=== PATIENT | female | born 1985 | race Two or more races ===

== ENCOUNTER 2018-11-15 10:07 | Outpatient (CLI) | payer OTHER | END 2018-11-15 10:10 | disposition home or self-care (01) | LOC: SONOGRAMA 10:07 → MAMO-SONO 11:15 | DX: N94.89 Other specified conditions associated with female genital organs and menstrual cycle (principal) ==

== ENCOUNTER → 2019-02-02 | Emergency (ER) | payer OTHER ==
[~2019-02-02] VITALS: Ht 149.9 cm; Wt 52.6 kg
== END | disposition home or self-care (01) ==
LOC: ER 09:29
DX: R10.13 Epigastric pain (principal)

== ENCOUNTER 2019-04-05 10:27 | Outpatient (CLI) | payer OTHER | END 2019-04-05 11:00 | disposition home or self-care (01) | LOC: TOM 10:27 | DX: R42 Dizziness and giddiness (principal); R11.0 Nausea; H92.02 Otalgia, left ear ==

== ENCOUNTER 2020-03-02 12:41 | Emergency (ER) | payer OTHER ==
[~2020-03-02] VITALS: Ht 149.9 cm; Wt 53.5 kg
[2020-03-02] MEDS ORDERED: ZITHROMAX500 MG PO (15:34)
== END 2020-03-02 16:01 | disposition home or self-care (01) ==
LOC: ER 12:41
DX: H92.03 Otalgia, bilateral (principal); Z20.828 Contact with and (suspected) exposure to other viral communicable diseases

== ENCOUNTER 2020-07-08 15:17 | Emergency (ER) | payer OTHER ==
[~2020-07-08] VITALS: Ht 149.9 cm; Wt 52.2 kg
[~2020-07-08 15:17] MED LIST: ZITHROMAX500 MG PO
[2020-07-08] MEDS ORDERED: PROAIR HFA8.5 GM (15:30)
== END 2020-07-08 17:59 | disposition home or self-care (01) ==
LOC: ER 15:17
DX: S43.491A Other sprain of right shoulder joint, initial encounter (principal); S13.4XXA Sprain of ligaments of cervical spine, initial encounter; X50.0XXA Overexertion from strenuous movement or load, initial encounter; Y93.89 Activity, other specified; Y92.89 Other specified places as the place of occurrence of the external cause; Y99.8 Other external cause status

== ENCOUNTER 2020-11-22 22:54 | Emergency (ER) | payer OTHER ==
[~2020-11-22] VITALS: Ht 149.9 cm; Wt 49.4 kg
[~2020-11-22 22:54] MED LIST changes: +PROAIR HFA8.5 GM
[2020-11-23] MEDS ORDERED: AMOX-CLAV 875-1 EACH PO (00:26)
[2020-11-23] MEDS ORDERED: ULTRAM50 MG PO (00:26)
== END 2020-11-23 00:30 | disposition home or self-care (01) ==
LOC: ER 22:54
DX: K04.7 Periapical abscess without sinus (principal)